=== PATIENT | male | born 1955 ===

== ENCOUNTER → 2016-09-28 | Outpatient (REF) | payer BC ==
[2016-09-28 10:23] LABS: BILIRUBIN,URINE Negative (Negative); CLARITY,URINE Clear; COLOR,URINE Yellow; GLUCOSE, URINE (UA) Negative (Negative); LEUKOCYTE ESTERASE ,URINE Negative (Negative); RBC,URINE 0-2 /HPF; URINE CENTRIFUGED VOLUME 12 mL; UROBILINOGEN,URINE 0.2 mg/dL (0.2-1.0)
== END ==
LOC: LAB 10:13
PROVIDERS: ATTEND Family Medicine
DX: R30.0 Dysuria (principal)
CPT/HCPCS: 81003; 81015